=== PATIENT | male | born 1980 | race African-American/Black ===

== ENCOUNTER 2017-05-14 17:31 | Emergency (ER) | payer SELFPAY ==
[~2017-05-14] VITALS: Ht 182.9 cm; Wt 105.0 kg
[~2017-05-14 17:31] MED LIST: DICL75 PO; ROBA750T3 PO
[2017-05-14 17:43] VITALS: BP 157/97; PULSE 77; RESP 16; TEMP 98; O2SAT 98
[2017-05-14] MEDS ORDERED: OSEL75 PO (18:07)
--- NOTE | 2017-05-14 18:07 | PD ---
HPI Chief Complaint: Cold / Flu Symptoms Time Seen by Provider: 17:58 Travel History International Travel<30 days: No Contact w/Intl Traveler<30days: No Traveled to known affect area: No History of Present Illness HPI 36-year-old male complains of "flulike symptoms" for 2 days. He describes fever and chills. He reports cough and sore throat. He reports body aches and pains. Severity moderate. PFSH Past Medical History Medical History: Denies Significant Hx Diminished Hearing: No Tetanus Vaccination: Unknown Influenza Vaccination: No ?: Not Past Surgical History Tympanostomy Tube: Yes Social History Alcohol Use: No Tobacco Use: No Substance Use: No Allergies-Medications (Allergen,Severity, Reaction): Coded Allergies: No Known Allergies (Verified Adverse Reaction, Unknown, 05/14/17) Reported Meds & Prescriptions Reported Meds & Active Scripts Active Tamiflu (Oseltamivir Phosphate) 75 Mg Cap 75 Mg PO BID 5 Days Review of Systems General / Constitutional: Positive: Fever, Chills Cardiovascular: No: Chest Pain or Discomfort Gastrointestinal: No: Vomiting Physical Exam Narrative GENERAL: 36 yo M, WNWD, NAD Vital Signs Date Time Temp Pulse Resp B/P (MAP) Pulse Ox O2 Delivery O2 Flow Rate FiO2 05/14/17 17:59 Room Air 05/14/17 17:43 98.0 77 16 157/97 (117) 98 SKIN: Warm and dry. ENT: Widely patent oropharynx. No erythema or asymmetry of the tonsils. No tonsillar exudate. HEAD: Normocephalic. EYES: No scleral icterus. No injection or drainage. NECK: Supple, trachea midline. No JVD or lymphadenopathy. CARDIOVASCULAR: Regular rate and rhythm without murmurs, gallops, or rubs. RESPIRATORY: Breath sounds equal bilaterally. No accessory muscle use. GASTROINTESTINAL: Abdomen soft, non-tender, nondistended. MUSCULOSKELETAL: No cyanosis, or edema. BACK: Nontender without obvious deformity. No CVA tenderness. Data Data Last Documented VS Vital Signs Date Time Temp Pulse Resp B/P (MAP) Pulse Ox O2 Delivery O2 Flow Rate FiO2 05/14/17 17:59 Room Air 05/14/17 17:43 98.0 77 16 157/97 (117) 98 Orders Orders Ed Discharge Order (05/14/17 18:07) MDM Medical Decision Making Medical Screen Exam Complete: Yes Emergency Medical Condition: Yes Differential Diagnosis Influenza, pneumonia, strep throat Narrative Course Presentation consistent with influenza. Tamiflu prescription. Diagnosis Primary Impression: Influenza Referrals: Primary Care Physician Med/Other Pt SpecificInfo: Prescription(s) given Scripts Oseltamivir (Tamiflu) 75 Mg Cap 75 MG PO BID for Mgmt Viral Infection for 5 Days, #10 CAP 0 Refills Prov: Charan Jennings MD 05/14/17 Disposition: 01 DISCHARGE HOME Condition: Stable Charan Jennings MD May 14, 2017 18:07
== END 2017-05-14 18:27 | disposition home or self-care (01) ==
LOC: PHEFT 17:31
DX: J10.89 Influenza due to other identified influenza virus with other manifestations (principal); J02.9 Acute pharyngitis, unspecified; R52 Pain, unspecified
CPT/HCPCS: 99283